=== PATIENT | male | born 1980 | race Caucasian/White ===

== ENCOUNTER 2019-08-31 07:37 | Day surgery (SDC) | payer OTHER ==
[~2019-08-31] VITALS: Ht 190.5 cm; Wt 96.6 kg
[~2019-08-31 07:37] MED LIST: BACL10TA2 PO; LIDOCAINE 1% MDV 20ML VIAL SQ PRN; LR 1,000 ML IV ONE; MULTCAP PO; NAPR-885 PO
[2019-08-31] MEDS ORDERED: PROPOFOL 200 MG/20 ML VIAL As Ordered ONE (08:27)
[2019-08-31] MEDS ORDERED: ROCURONIUM BROMIDE 50 MG/5 ML VIAL As Ordered ONE (08:27)
[2019-08-31] MEDS ORDERED: ONDANSETRON 4MG/2ML VIAL (J2405) As Ordered ONE (08:27)
[2019-08-31] MEDS ORDERED: LIDOCAINE 2% INJ 100 MG/5 ML SDV (FOR ANES.) As Ordered ONE ×2 (08:27→08:28)
[2019-08-31] MEDS ORDERED: LIDOCAINE W/EPINEPHRINE 1% 20ML VIAL As Ordered ONE (08:28)
[2019-08-31] MEDS ORDERED: METHYLENE BLUE 0.5% (5MG/ML) 10 ML AMP (PROVAYBLUE)(Q9968 PER 1MG) As Ordered ONE (08:28)
[2019-08-31] MEDS ORDERED: dexameTHASONE 4 MG/ML 1ML VIAL (J1100) As Ordered ONE (08:28)
[2019-08-31] MEDS ORDERED: EPINEPHrine 1MG/ML INJ 30ML MD-VIAL As Ordered ONE (08:28)
[2019-08-31] MEDS ORDERED: MIDAZOLAM INJ 2 MG/2 ML VIAL (J2250) As Ordered ONE (08:33)
[2019-08-31] MEDS ORDERED: fentaNYL 100 MCG/2 ML INJECTION (J3010) As Ordered ONE (08:33)
[2019-08-31] MEDS ORDERED: SUGAMMADEX SODIUM 500 MG/5 ML VIAL (BRIDION) As Ordered ONE (09:12)
[2019-08-31] MEDS ORDERED: METOCLOPRAMIDE INJ 10MG/2ML VIAL (J2765) IV PRN (10:00)
[2019-08-31] MEDS ORDERED: ONDANSETRON 4MG/2ML VIAL (J2405) IV PRN (10:00)
[2019-08-31] MEDS ORDERED: PERCOCET 5MG/325MG TAB PO PRN (10:00)
[2019-08-31] MEDS ORDERED: LR 1,000 ML IV SCH ×2 (10:00→11:01)
[2019-08-31] MEDS ORDERED: fentaNYL 100 MCG/2 ML INJECTION (J3010) IV PRN (10:00)
[2019-08-31] MEDS ORDERED: ACETAMINOPH W/CODEINE #3 TAB UD PO PRN (11:01)
[2019-08-31 11:48] VITALS: BP 135/82
--- NOTE | 2019-09-01 10:55 | RO ---
DATE OF PROCEDURE: 08/31/2019 PREOPERATIVE DIAGNOSES: Nasal deviation and chronic rhinitis. POSTOPERATIVE DIAGNOSES: Nasal deviation and chronic rhinitis. PROCEDURE: Septoplasty, bilateral turbinectomy. SURGEON: Gabino Arshad MD NUCLEAR FUEL PROCESSING TECHNICIAN: ANESTHESIA: General. DESCRIPTION OF PROCEDURE: Under general anesthesia with the patient intubated, the patient was draped in the usual manner. I used pledgets of adrenaline 1:1000 and infiltrated with lidocaine and epinephrine. I made an incision on the left side, elevated the subperichondrial plane. I the quadrangular cartilage and the ethmoid plate, maxillary crest and removed a portion of both, plus there is a vomer spur. Once this was done, the septum was straight so I closed the incision with #4-0 chromic. Next, I made an incision anterior to the inferior turbinate on both sides. I used the microdebrider and forceps to remove some of the kely. I closed that with #4-0 Vicryl. The patient tolerated the procedure well. Less than 50 mL of estimated blood loss. The patient was extubated and transferred to the recovery room in excellent condition.
== END 2019-08-31 12:06 | disposition home or self-care (01) ==
LOC: M SDC 07:37
PROVIDERS: ATTEND Otolaryngology
DX: J34.2 Deviated nasal septum (principal); J31.0 Chronic rhinitis; Z79.899 Other long term (current) drug therapy; Z87.891 Personal history of nicotine dependence
CPT/HCPCS: 30140; 30520; 88300; 88305; J1100; J2250; J2405; J3010; Q9968

== ENCOUNTER → 2019-09-29 | Outpatient (CLI) | payer OTHER ==
[~2019-09-29] MED LIST changes: +ISOVUE-370 76% 100ML VIAL (Q9967) As Ordered ONE; -LIDOCAINE 1% MDV 20ML VIAL SQ PRN; -LR 1,000 ML IV ONE
--- NOTE | 2019-09-30 06:26 | REP ---
Clinical: Thoracic back pain. Technique: Axial contrast enhanced images from the thoracic inlet to the upper abdomen with coronal and sagittal re-formations using 75 ml Isovue 370 intravenous contrast material. Findings: The bilateral lung glover are well-aerated and clear. No consolidation, significant nodule, or mass lesion. No pleural effusion. No pneumothorax. Tracheobronchial tree is patent. No adenopathy. The mediastinum demonstrates normal thoracic aorta, pulmonary vasculature and heart/pericardium. Limited upper abdomen demonstrates no obvious abnormality. Surrounding musculoskeletal structures are intact and normal. Impression: Normal contrast enhanced chest CT. Electronically Signed by Leonardo Delcid MD 09/30/2019 06:18 A
== END ==
LOC: M RAD 16:50
PROVIDERS: ATTEND Physician Assistant
DX: M54.5 Low back pain (principal)